=== PATIENT | female | born 1970 | race Caucasian/White ===

== ENCOUNTER 2019-07-15 10:01 | Outpatient (CLI) | payer OTHER | END 2019-07-15 10:12 | disposition home or self-care (01) | LOC: SONOGRAMA 10:01 | DX: E04.1 Nontoxic single thyroid nodule (principal) ==

== ENCOUNTER 2023-03-02 05:00 | Day surgery (SDC) | payer OTHER ==
[~2023-03-02] VITALS: Ht 157.5 cm; Wt 61.7 kg
[~2023-03-02 05:00] MED LIST: COZAAR25 MG PO; MAXIFED TABLET1 EACH PO; PEPCID AC20 MG PO; TOPROL XL25 M1 PO
[2023-03-02] MEDS ORDERED: MEFENAMIC ACID250 MG PO (10:27)
== END 2023-03-02 15:40 | disposition home or self-care (01) ==
LOC: CIR.AMB 05:00
PROVIDERS: ATTEND Obstetrics & Gynecology
DX: D25.0 Submucous leiomyoma of uterus (principal); N84.0 Polyp of corpus uteri; N92.1 Excessive and frequent menstruation with irregular cycle; Z20.822 Contact with and (suspected) exposure to COVID-19; E78.5 Hyperlipidemia, unspecified; I10 Essential (primary) hypertension

== ENCOUNTER 2023-03-18 17:42 | Emergency (ER) | payer OTHER ==
[~2023-03-18] VITALS: Ht 157.5 cm; Wt 62.1 kg
[~2023-03-18 17:42] MED LIST changes: +MEFENAMIC ACID250 MG PO
[2023-03-18] MEDS ORDERED: CARAFATE1 GM (18:30)
[2023-03-18 19:51] LABS: HEMATOCRIT 35.9 % (36.0-45.00); HEMOGLOBIN 12.4 g/dL (12.0-15.00); MEAN CELL VOLUME 91.2 fL (80.00-100.00); MEAN CORPUSCULAR HEMOGLOBIN 31.4 pg (27.00-32.0); MEAN CORPUSCULAR HGB CONC 34.5 g/dl (32.0-36.0); PLATELET COUNT 300 K/uL (150-450); RED BLOOD COUNT 3.94 M/uL (4.00-6.00); RED CELL DISTRIBUTION WIDTH 13.8 % (11.5-14.5)
[2023-03-18 20:03] LABS: PARTIAL THROMBOPLASTIN TIME 28.6 SECONDS (22.0-34.0); PROTHROMBIN TIME 10.5 SECONDS (9.0-11.5)
[2023-03-18 20:08] LABS: CALCIUM 9.3 mg/dL (8.5-10.1); CREATININE SERUM 0.62 mg/dL (0.55-1.02); GFR 101.48; POTASSIUM 3.35 mEq/L (3.5-5.1)
[2023-03-18 21:17] LABS: URINE APPEARANCE Clear; URINE BACTERIA 80.6 uL (0.0-1933); URINE BILIRRUBIN Negative (NEGATIVE); URINE BLOOD Large; URINE COLOR Yellow; URINE EPITHELIAL CELLS 36.7 uL (0.0-38.8); URINE GLUCOSE Negative (NEGATIVE); URINE LEUKOCYTE Negative; URINE NITRATE Negative; URINE PROTEIN Negative (NEGATIVE); URINE RBC 3.1 uL (0.0-20.8); URINE UROBILINOGEN 0.2 E.U./dl; URINE WBC 8.9 uL (0.0-23.2)
[2023-03-18 21:51] LABS: URINE YEAST NEGATIVE /hpf
== END 2023-03-18 22:46 | disposition home or self-care (01) ==
LOC: ER 17:42
PROVIDERS: General Practice
DX: N93.9 Abnormal uterine and vaginal bleeding, unspecified (principal)

== ENCOUNTER 2023-12-12 13:23 | Emergency (ER) | payer OTHER ==
[~2023-12-12] VITALS: Ht 157.5 cm; Wt 60.3 kg
[~2023-12-12 13:23] MED LIST changes: +CARAFATE1 GM
[2023-12-12] MEDS ORDERED: MELOXICAM15 MG (13:50)
[2023-12-12] MEDS ORDERED: FAMOTIDINE/PF 20 MG/2 ML VIAL IV ONE (15:15)
[2023-12-12] MEDS ORDERED: ONDANSETRON HCL 2 MG/ML VIAL IV ONE (15:15)
[2023-12-12] MEDS ORDERED: 0.9 % SODIUM CHLORIDE 500 ML IV ONE (15:15)
[2023-12-12] MEDS ORDERED: ONDANSETRON HCL 2 MG/ML VIAL ONE (15:18)
[2023-12-12] MEDS ORDERED: FAMOtidine 200mg/20ml VIAL ONE (15:18)
[2023-12-12 15:47] LABS: HEMATOCRIT 38.2 % (36.0-45.00); HEMOGLOBIN 13.1 g/dL (12.0-15.00); MEAN CELL VOLUME 89.4 fL (80.00-100.00); MEAN CORPUSCULAR HEMOGLOBIN 30.8 pg (27.00-32.0); MEAN CORPUSCULAR HGB CONC 34.4 g/dl (32.0-36.0); PLATELET COUNT 319 K/uL (150-450); RED BLOOD COUNT 4.27 M/uL (4.00-6.00); RED CELL DISTRIBUTION WIDTH 13.9 % (11.5-14.5)
[2023-12-12 16:20] LABS: ALBUMIN 4.3 gm/dL (3.4-5.0); BILIRUBIN TOTAL 0.61 mg/dL (0.3-1.2); CALCIUM 10.1 mg/dL (8.5-10.1); CREATININE SERUM 0.64 mg/dL (0.55-1.02); GFR 97.44; GLOBULINA 3.6 G/DL (2.4-3.5); POTASSIUM 3.94 mEq/L (3.5-5.1); TOTAL PROTEIN 7.9 gm/dL (6.4-8.2)
[2023-12-12 16:36] LABS: PH,URINE 5.5 (5.0-8.0); URINE APPEARANCE Clear; URINE BILIRRUBIN Negative (NEGATIVE); URINE BLOOD Negative; URINE COLOR Yellow; URINE GLUCOSE Negative (NEGATIVE); URINE LEUKOCYTE Negative; URINE NITRATE Negative; URINE PROTEIN Negative (NEGATIVE); URINE UROBILINOGEN 0.2 E.U./dl
[2023-12-12 16:40] LABS: URINE BACTERIA 12.5 uL (0.0-1933); URINE EPITHELIAL CELLS 3.6 uL (0.0-38.8)
[2023-12-12 16:43] LABS: URINE RBC 1.9 uL (0.0-20.8); URINE WBC 0.7 uL (0.0-23.2)
[2023-12-12] MEDS ORDERED: SUCRALFATE 1 G TABLET PO ONE (17:15)
== END 2023-12-12 18:56 | disposition home or self-care (01) ==
LOC: ER 13:24
PROVIDERS: Nurse Practitioner Family
DX: K29.70 Gastritis, unspecified, without bleeding (principal); I10 Essential (primary) hypertension

== ENCOUNTER → 2024-05-18 | Emergency (ER) | payer OTHER ==
[~2024-05-18] VITALS: Ht 157.5 cm; Wt 58.1 kg
[~2024-05-18] MED LIST changes: +CHLORDIAZEPO-A1 EACH PO; +KETOROLAC TROMETHAMINE 30 MG VIAL IM STA; +MELOXICAM15 MG; +ORPHENADRINE CITRATE 30 MG/ML AMPUL IM STA; +PROTONIX20 MG PO
[2024-05-18 19:26] LABS: HEMATOCRIT 41.1 % (36.0-45.00); HEMOGLOBIN 13.5 g/dL (12.0-15.00); MEAN CELL VOLUME 92.9 fL (80.00-100.00); MEAN CORPUSCULAR HEMOGLOBIN 30.5 pg (27.00-32.0); MEAN CORPUSCULAR HGB CONC 32.8 g/dl (32.0-36.0); PLATELET COUNT 319 K/uL (150-450); RED BLOOD COUNT 4.43 M/uL (4.00-6.00); RED CELL DISTRIBUTION WIDTH 13.8 % (11.5-14.5)
[2024-05-18 19:52] LABS: CALCIUM 9.8 mg/dL (8.5-10.1); CREATININE SERUM 0.66 mg/dL (0.55-1.02); GFR 93.68; POTASSIUM 4.63 mEq/L (3.5-5.1)
== END | disposition home or self-care (01) ==
LOC: ER 17:04
PROVIDERS: General Practice
DX: R07.9 Chest pain, unspecified (principal)